=== PATIENT | female | born 1965 | race Caucasian/White ===

== ENCOUNTER → 2023-07-13 14:32 | Outpatient (BNVA) | payer BC, SELFPAY | PROVIDERS: Visit Provider Nurse Practitioner Women's Health | DX: Z12.4 Encounter for screening for malignant neoplasm of cervix (principal) | CPT/HCPCS: 87624 ==

== ENCOUNTER → 2023-07-28 11:08 | Outpatient (BNVA) | payer BC, SELFPAY | PROVIDERS: Visit Provider Nurse Practitioner Women's Health | DX: N95.0 Postmenopausal bleeding (principal); D25.9 Leiomyoma of uterus, unspecified | CPT/HCPCS: 76830 ==

== ENCOUNTER 2023-08-31 12:54 | Outpatient (CLI) | payer BC, SELFPAY ==
--- NOTE | 2023-08-31 13:00 | MRR_ITS ---
PROCEDURE INFORMATION: Exam: MR Pelvis Without and With Contrast; Uterus and Adnexa Exam date and time: 08/31/2023 1:13 PM Age: 58 years old Clinical indication: Condition or disease; Ovarian conditions; Type of cyst not specified; Prior surgery; Surgery date: 6+ months; Surgery type: Gastric bypass and gallbladder; Additional info: N83.8 - other noninflammatory disorders of ovary, fallopi. . . TECHNIQUE: Imaging protocol: Magnetic resonance imaging of the pelvis without and with contrast. Exam focused on the uterus and adnexa. Contrast material: MULTIHANCE; Contrast volume: 20 ml; Contrast route: INTRAVENOUS (IV); COMPARISON: US transvaginal [id number] 07/28/2023 11:14 AM FINDINGS: Uterus: Multifibroid uterus. This includes the largest subserosal fibroid at the fundus with a thin connecting stalk series 1501, image 38 measuring up to 4 cm in size. There is also a subserosal fibroid in the lower uterine segment on the right measuring up to 3.2 cm series 601, image 17. This may have been mislabeled as the right ovary on corresponding ultrasound given location. Normal endometrium and junctional zone. Right ovary/adnexa: Poorly delineated on exam due to small size, best seen on series 601, image 10, no evidence of mass. Left ovary/adnexa: Poorly delineated on exam due to small size, best seen on series 601, image 15. No evidence of mass. Intraperitoneal space: No free fluid. Soft tissues: Unremarkable. MR/MR pelvis wo/w con [id number] IMPRESSION: Multi fibroid uterus with a couple prominent subserosal fibroids including one located in the right lower uterine segment. This was most likely mischaracterized on ultrasound as the right ovary given location. The ovaries are difficult to visualize on exam due to their small size and location abutting the fibroid uterus but there is no evidence of ovarian mass.
[2023-08-31] MEDS: gadobenate dimeglumine 20 mL vial IV (14:14)
== END 2023-08-31 12:55 | disposition home or self-care (01) ==
LOC: RAD 12:54
PROVIDERS: Visit Provider Obstetrics & Gynecology
DX: N83.8 Other noninflammatory disorders of ovary, fallopian tube and broad ligament (principal); D25.2 Subserosal leiomyoma of uterus
CPT/HCPCS: 72197; A9577